=== PATIENT | female | born 1945 | race Caucasian/White ===

== ENCOUNTER 2024-03-29 10:26 | Emergency (ER) | payer MEDICARE ==
[2024-03-29 10:57] VITALS: BP 178/71; PULSE 71
== END 2024-03-29 12:55 | disposition home or self-care (01) ==
LOC: JP.ED 10:26
DX: R60.0 Localized edema (principal); E78.00 Pure hypercholesterolemia, unspecified; E11.9 Type 2 diabetes mellitus without complications; Z88.0 Allergy status to penicillin; Z88.2 Allergy status to sulfonamides; Z79.84 Long term (current) use of oral hypoglycemic drugs; Z79.899 Other long term (current) drug therapy
CPT/HCPCS: 93971-LT; 99283